=== PATIENT | female | born 1995 | race American Indian/Alaskan Native ===

== ENCOUNTER 2017-04-07 21:19 | Outpatient (CLI) | payer MEDICAID ==
[2017-04-07 21:30] VITALS: BP 132/68
[2017-04-07] MEDS ORDERED: LACTATED RINGERS 1,000 ML IV SCH (22:00)
[2017-04-07] MEDS ORDERED: VISTARIL PO ONE (22:09)
== END 2017-04-07 23:15 | disposition left against medical advice (07) ==
LOC: TRG 21:19
PROVIDERS: ATTEND Obstetrics & Gynecology
DX: O47.1 False labor at or after 37 completed weeks of gestation (principal); Z3A.39 39 weeks gestation of pregnancy
CPT/HCPCS: 59025; Q0177

== ENCOUNTER 2017-04-08 14:52 | Inpatient (IN) | payer MEDICAID ==
[2017-04-08] MEDS ORDERED: STADOL IV PRN (16:22)
[2017-04-08 16:44] LABS: Hematocrit 37.5 % (30.3-42.9); Hemoglobin 12.8 gm/dl (10.1-14.3); Mean Corpuscular HGB Conc 34 % (30-34); Mean Corpuscular Hemoglobin 31 pg (28-32); Mean Corpuscular Volume 91 fl (79-97); Platelet Count 294 K/mm3 (140-440); Red Blood Count 4.11 M/mm3 (3.65-5.03); Red Cell Distribution Width 14.9 % (13.2-15.2)
[2017-04-08] MEDS ORDERED: POLYCILLIN/NS 2 GM/100 ML 2 GM/100 ML BAG IV ONE (17:00)
[2017-04-08] MEDS ORDERED: PITOCin/NS 20 UNIT/1000ML DRIP 20 UNITS/1,000 ML BAG IV SCH ×2 (17:00→23:45)
[2017-04-08] MEDS: LACTATED RINGERS 1,000 ML IV SCH ×4 (17:25→23:11)
[2017-04-08] MEDS ORDERED: ePHEDrine SULFATE IV PRN (18:38)
[2017-04-08] MEDS ORDERED: NARCAN 2 MG/2 ML IV PRN (18:38)
[2017-04-08] MEDS ORDERED: fentaNYL-BUPIV 2 MCG/ML-0.125% 200 MCG/100 ML BAG EPIDURAL SCH (19:00)
[2017-04-08] MEDS ORDERED: ePHEDrine SULFATE ONE (19:11)
[2017-04-08] MEDS ORDERED: XYLOCAINE 2% INFILTRATI ONE ×3 (19:17→23:36)
[2017-04-08] MEDS ORDERED: SUBLIMAZE ONE ×2 (19:20→22:41)
[2017-04-08] MEDS ORDERED: SUBLIMAZE IV ONE ×2 (19:50→22:37)
--- NOTE | 2017-04-08 19:56 | Anesthesia Consultation ---
Anesthesia Consult and Med Hx Date of service: 04/08/17 - Airway Anesthetic Teeth Evaluation: Good ROM Head & Neck: Adequate Mental/Hyoid Distance: Adequate Mallampati Class: Class III Intubation Access Assessment: Probably Good - Pulmonary Exam CTA: Yes - Cardiac Exam Cardiac Exam: RRR - Pre-Operative Health Status ASA Pre-Surgery Classification: ASA2 Proposed Anesthetic Plan: Epidural, Spinal - Pulmonary Hx Smoking: No Hx Asthma: No COPD: No Hx Pneumonia: No - Cardiovascular System Hx Hypertension: No - Central Nervous System Hx Seizures: No Hx Psychiatric Problems: No - Endocrine Hx Renal Disease: No Hx End Stage Renal Disease: No Hx Hypothyroidism: No Hx Hyperthyroidism: No - Hematic Hx Anemia: No Hx Sickle Cell Disease: No - Other Systems Hx Alcohol Use: No
[2017-04-08] MEDS: PITOCin/NS 30 UNIT/500ML 30 UNITS/500 ML BAG IV SCH ×2 (20:38→21:18)
[2017-04-08] MEDS ORDERED: POLYCILLIN/NS 1 GM/50 ML 1 GM/50 ML BAG IV SCH (21:00)
--- NOTE | 2017-04-08 22:55 | Progress Note ---
Subjective Date of service: 04/08/17 Principal diagnosis: IUP Interval history: Nurse notified me of labor pain of which is not responsive to a bolus on the pump. I reported to OB. Obtained a vial of fentanyl. Bolused 1ml through epidural catheter. Bolused 3 ml of bupivicaine/fentanyl solution. Both with negative aspiration using aseptic technique Objective - Constitutional Vitals: Vital Signs - 12hr 04/08/17 04/08/17 04/08/17 15:22 15:27 15:47 Temperature 99.0 F Pulse Rate 93 H 89 Respiratory 18 Rate Blood Pressure 129/85 118/70 Blood Pressure [Left] O2 Sat by Pulse Oximetry 04/08/17 04/08/17 04/08/17 17:01 17:08 18:09 Temperature 97.9 F Pulse Rate 100 H 102 H Respiratory 18 Rate Blood Pressure 138/87 129/62 Blood Pressure [Left] O2 Sat by Pulse Oximetry 04/08/17 04/08/17 04/08/17 18:35 18:39 18:40 Temperature Pulse Rate 101 H 100 H 103 H Respiratory Rate Blood Pressure 120/69 Blood Pressure [Left] O2 Sat by Pulse 98 98 Oximetry 04/08/17 04/08/17 04/08/17 18:42 18:50 18:55 Temperature Pulse Rate 98 H 89 Respiratory Rate Blood Pressure Blood Pressure [Left] O2 Sat by Pulse 80 L 99 98 Oximetry 04/08/17 04/08/17 04/08/17 18:59 19:00 19:01 Temperature Pulse Rate 88 98 H 85 Respiratory Rate Blood Pressure 129/67 125/65 Blood Pressure [Left] O2 Sat by Pulse 98 Oximetry 04/08/17 04/08/17 04/08/17 19:03 19:05 19:07 Temperature Pulse Rate 90 94 H 93 H Respiratory Rate Blood Pressure 131/71 128/72 129/68 Blood Pressure [Left] O2 Sat by Pulse 98 Oximetry 04/08/17 04/08/17 04/08/17 19:09 19:10 19:11 Temperature Pulse Rate 96 H 97 H 96 H Respiratory Rate Blood Pressure 128/73 132/73 Blood Pressure [Left] O2 Sat by Pulse 98 Oximetry 04/08/17 04/08/17 04/08/17 19:13 19:15 19:17 Temperature Pulse Rate 92 H 94 H 94 H Respiratory Rate Blood Pressure 128/72 123/66 124/69 Blood Pressure [Left] O2 Sat by Pulse 96 Oximetry 04/08/17 04/08/17 04/08/17 19:19 19:20 19:21 Temperature Pulse Rate 93 H 94 H 91 H Respiratory Rate Blood Pressure 125/68 120/67 Blood Pressure [Left] O2 Sat by Pulse 96 Oximetry 04/08/17 04/08/17 04/08/17 19:23 19:25 19:27 Temperature Pulse Rate 90 97 H 100 H Respiratory Rate Blood Pressure 122/66 119/69 113/68 Blood Pressure [Left] O2 Sat by Pulse 99 Oximetry 04/08/17 04/08/17 04/08/17 19:29 19:30 19:31 Temperature Pulse Rate 92 H 92 H 93 H Respiratory Rate Blood Pressure 112/73 118/73 Blood Pressure [Left] O2 Sat by Pulse 98 Oximetry 04/08/17 04/08/17 04/08/17 19:33 19:35 19:36 Temperature Pulse Rate 90 93 H 97 H Respiratory Rate Blood Pressure 120/76 124/73 Blood Pressure [Left] O2 Sat by Pulse 86 Oximetry 04/08/17 04/08/17 04/08/17 19:37 19:39 19:41 Temperature Pulse Rate 86 96 H 91 H Respiratory Rate Blood Pressure 142/76 133/73 129/70 Blood Pressure [Left] O2 Sat by Pulse 97 Oximetry 04/08/17 04/08/17 04/08/17 19:42 19:43 19:45 Temperature Pulse Rate 95 H 88 94 H Respiratory Rate Blood Pressure 134/74 131/73 Blood Pressure [Left] O2 Sat by Pulse 97 Oximetry 04/08/17 04/08/17 04/08/17 19:47 19:49 19:51 Temperature Pulse Rate 87 93 H 85 Respiratory Rate Blood Pressure 138/74 131/74 137/75 Blood Pressure [Left] O2 Sat by Pulse 98 Oximetry 04/08/17 04/08/17 04/08/17 19:52 19:53 19:57 Temperature Pulse Rate 91 H 85 96 H Respiratory Rate Blood Pressure 112/60 Blood Pressure [Left] O2 Sat by Pulse 98 98 Oximetry 04/08/17 04/08/17 04/08/17 19:59 20:00 20:02 Temperature 98.3 F Pulse Rate 88 92 H Respiratory 18 Rate Blood Pressure 119/67 Blood Pressure 129/67 [Left] O2 Sat by Pulse 98 98 Oximetry 04/08/17 04/08/17 04/08/17 20:04 20:07 20:09 Temperature Pulse Rate 92 H 87 87 Respiratory Rate Blood Pressure 117/63 122/60 Blood Pressure [Left] O2 Sat by Pulse 97 Oximetry 04/08/17 04/08/17 04/08/17 20:12 20:14 20:17 Temperature Pulse Rate 83 83 88 Respiratory Rate Blood Pressure 118/64 Blood Pressure [Left] O2 Sat by Pulse 98 97 Oximetry 04/08/17 04/08/17 04/08/17 20:19 20:22 20:27 Temperature Pulse Rate 90 91 H 94 H Respiratory Rate Blood Pressure 136/63 Blood Pressure [Left] O2 Sat by Pulse 98 98 Oximetry 04/08/17 04/08/17 04/08/17 20:32 20:37 20:42 Temperature Pulse Rate 92 H 83 84 Respiratory Rate Blood Pressure 139/67 Blood Pressure [Left] O2 Sat by Pulse 97 97 99 Oximetry 04/08/17 04/08/17 04/08/17 20:47 20:50 20:52 Temperature Pulse Rate 96 H 91 H 96 H Respiratory Rate Blood Pressure Blood Pressure [Left] O2 Sat by Pulse 98 94 98 Oximetry 04/08/17 04/08/17 04/08/17 20:57 21:02 21:07 Temperature Pulse Rate 90 99 H 93 H Respiratory Rate Blood Pressure Blood Pressure [Left] O2 Sat by Pulse 98 98 98 Oximetry 04/08/17 04/08/17 04/08/17 21:12 21:17 21:22 Temperature Pulse Rate 94 H 89 88 Respiratory Rate Blood Pressure 123/66 Blood Pressure [Left] O2 Sat by Pulse 98 97 97 Oximetry 04/08/17 04/08/17 04/08/17 21:27 21:32 21:37 Temperature Pulse Rate 93 H 102 H 95 H Respiratory Rate Blood Pressure 127/60 Blood Pressure [Left] O2 Sat by Pulse 98 96 97 Oximetry 04/08/17 04/08/17 04/08/17 21:41 21:42 21:47 Temperature Pulse Rate 100 H 97 H 98 H Respiratory Rate Blood Pressure 125/70 Blood Pressure [Left] O2 Sat by Pulse 97 98 Oximetry 04/08/17 04/08/17 04/08/17 21:52 21:55 21:57 Temperature Pulse Rate 103 H 96 H 99 H Respiratory Rate Blood Pressure 140/64 134/66 Blood Pressure [Left] O2 Sat by Pulse 97 97 Oximetry 04/08/17 04/08/17 04/08/17 22:02 22:07 22:11 Temperature Pulse Rate 99 H 104 H 98 H Respiratory Rate Blood Pressure 123/70 Blood Pressure [Left] O2 Sat by Pulse 97 97 Oximetry 04/08/17 04/08/17 04/08/17 22:12 22:17 22:22 Temperature Pulse Rate 94 H 95 H 97 H Respiratory Rate Blood Pressure Blood Pressure [Left] O2 Sat by Pulse 98 97 97 Oximetry 04/08/17 04/08/17 04/08/17 22:27 22:32 22:37 Temperature Pulse Rate 93 H 89 98 H Respiratory Rate Blood Pressure 122/75 Blood Pressure [Left] O2 Sat by Pulse 96 97 97 Oximetry 04/08/17 04/08/17 04/08/17 22:42 22:47 22:52 Temperature Pulse Rate 89 82 90 Respiratory Rate Blood Pressure 117/61 Blood Pressure [Left] O2 Sat by Pulse 98 100 99 Oximetry - Labs CBC & Chem 7: 04/08/17 15:50 Labs: Abnormal lab results 04/08/17 Range/Units 15:50 WBC 18.2 H (4.5-11.0) K/mm3
[2017-04-08] MEDS ORDERED: MINERAL OIL PO PRN (23:36)
--- NOTE | 2017-04-08 23:43 | History and Physical Report ---
History of Present Illness Date of examination: 04/08/17 Date of admission: 04/08/17 15:46 Chief complaint: Intense Labor Pains History of present illness: Early entry to care, course complicated by excessive maternal weight gain and Vitamin D Insufficiency. Past History Past Medical History: no pertinent history Past Surgical History: no surgical history Family/Genetic History: diabetes (MGM, MGF), hypertension (Mother) Social history: no significant social history, single - Obstetrical History Expected Date of Delivery: 04/12/17 Actual Gestation: 39 Week(s) 3 Day(s) : 2 Medications and Allergies Allergies Allergy/AdvReac Type Severity Reaction Status Date / Time No Known Allergies Allergy Verified 04/07/17 22:05 Home Medications Medication Instructions Recorded Confirmed Last Taken Type Cholecalciferol (Vitamin D3) 1 tab PO DAILY 04/08/17 04/08/17 04/07/17 19:00 History [Vitamin D3] 1 Pnv,Calcium 72/Iron/Folic Acid 1 tab PO DAILY 04/08/17 04/08/17 04/07/17 19:00 History [Pnv Plus Multivit Tab] 1 Active Meds: Active Medications Butorphanol Tartrate (Stadol) 2 mg IV Q2H PRN PRN Reason: Labor Pain Last Admin: 04/08/17 18:17 Dose: 2 mg Ephedrine Sulfate (Ephedrine Sulfate) 10 mg IV Q2M PRN PRN Reason: Hypotension Lactated Ringer's (Lactated Ringers) 1,000 mls @ 125 mls/hr IV DIRECT GENTRY Last Admin: 04/08/17 23:11 Dose: 125 mls/hr Oxytocin/Sodium Chloride (Pitocin/Ns 20 Unit/1000ml Drip) 20 units in 1,000 mls @ 0 mls/hr IV DIRECT GENTRY PRN Reason: As Directed Ampicillin Sodium (Polycillin/Ns 1 Gm/50 Ml) 1 gm in 50 mls @ 100 mls/hr IV Q4H GENTRY PRN Reason: Protocol Last Admin: 04/08/17 21:17 Dose: 100 mls/hr Fentanyl/Bupivacaine/Sodium Chlor (Fentanyl-Bupiv 2 Mcg/Ml-0.125%) 200 mcg in 100 mls @ 12 mls/hr EPIDURAL TITR GENTRY PRN Reason: Protocol Last Admin: 04/08/17 19:51 Dose: 12 mls/hr Oxytocin/Sodium Chloride (Pitocin/Ns 30 Unit/500ml) 30 units in 500 mls @ 4 mls /hr IV TITR GENTRY; 4 MILLIUNITS/MIN PRN Reason: Protocol Last Admin: 04/08/17 21:18 Dose: 6 milliunits/min, 6 mls/hr Oxytocin/Sodium Chloride (Pitocin/Ns 20 Unit/1000ml Drip) 20 units in 1,000 mls @ 125 mls/hr IV DIRECT GENTRY Lidocaine (Xylocaine 2%) 20 ml INFILTRATI ONCE ONE Stop: 04/08/17 23:37 Mineral Oil (Mineral Oil) 30 ml PO QHS PRN PRN Reason: Constipation Naloxone HCl (Narcan 2 Mg/2 Ml) 0.2 mg IV Q5M PRN PRN Reason: Respiratory sedation Review of Systems All systems: negative - Vital Signs Vital signs: Vital Signs Temp Resp 99.0 F 18 04/08/17 15:22 04/08/17 15:22 Temp Pulse Resp BP Pulse Ox 98.3 F 94 H 18 122/66 99 04/08/17 20:00 04/08/17 23:41 04/08/17 19:59 04/08/17 23:41 04/08/17 23:37 - Physical Exam Breasts: Positive: normal Cardiovascular: Regular rate Lungs: Positive: Clear to auscultation, Normal air movement Abdomen: Positive: normal appearance, soft, normal bowel sounds Genitourinary (Female): Positive: normal external genitalia, normal perenium Uterus: Positive: enlarged Anus/Rectum: Positive: normal perianal skin Extremities: Positive: normal - Obstetrical FHR: category 2 FHR comments: FHR: 144, moderate varability, +accels, + occ varabile decels Uterine Contraction Monitor Mode: External Cervical Dilatation: 9.5 (Large amount of thin meconium stained fluids upon AROM @ 2331) Cervical Effacement Percentage: 100 station: 0 Uterine Contraction Pattern: Regular Uterine Tone Measurement Phase: Resting Uterine Contraction Intensity: Moderate Results Result Diagrams: 04/08/17 15:50 Abnormal lab results 04/08/17 Range/Units 15:50 WBC 18.2 H (4.5-11.0) K/mm3 All other labs normal. Assessment and Plan A: IUP @ 39 3/7 Weeks Active Labor Category II Tracing GBS Positive P: Admit to L&D per Routine Orders Pitocin Augmentation GBS Prophylaxis AROM
[2017-04-09] MEDS ORDERED: SUBLIMAZE IV ONE (00:33)
--- NOTE | 2017-04-09 00:57 | Progress Note ---
Subjective Date of service: 04/09/17 Principal diagnosis: IUP Interval history: Nurse notified me of labor pain of which is not responsive to the pump. I reported to OB. Obtained fentanyl. Bolused 1ml through epidural catheter- negative aspiration using aseptic technique Objective - Constitutional Vitals: Vital Signs - 12hr 04/08/17 04/08/17 04/08/17 15:22 15:27 15:47 Temperature 99.0 F Pulse Rate 93 H 89 Respiratory 18 Rate Blood Pressure 129/85 118/70 Blood Pressure [Left] O2 Sat by Pulse Oximetry 04/08/17 04/08/17 04/08/17 17:01 17:08 18:09 Temperature 97.9 F Pulse Rate 100 H 102 H Respiratory 18 Rate Blood Pressure 138/87 129/62 Blood Pressure [Left] O2 Sat by Pulse Oximetry 04/08/17 04/08/17 04/08/17 18:35 18:39 18:40 Temperature Pulse Rate 101 H 100 H 103 H Respiratory Rate Blood Pressure 120/69 Blood Pressure [Left] O2 Sat by Pulse 98 98 Oximetry 04/08/17 04/08/17 04/08/17 18:42 18:50 18:55 Temperature Pulse Rate 98 H 89 Respiratory Rate Blood Pressure Blood Pressure [Left] O2 Sat by Pulse 80 L 99 98 Oximetry 04/08/17 04/08/17 04/08/17 18:59 19:00 19:01 Temperature Pulse Rate 88 98 H 85 Respiratory Rate Blood Pressure 129/67 125/65 Blood Pressure [Left] O2 Sat by Pulse 98 Oximetry 04/08/17 04/08/17 04/08/17 19:03 19:05 19:07 Temperature Pulse Rate 90 94 H 93 H Respiratory Rate Blood Pressure 131/71 128/72 129/68 Blood Pressure [Left] O2 Sat by Pulse 98 Oximetry 04/08/17 04/08/17 04/08/17 19:09 19:10 19:11 Temperature Pulse Rate 96 H 97 H 96 H Respiratory Rate Blood Pressure 128/73 132/73 Blood Pressure [Left] O2 Sat by Pulse 98 Oximetry 04/08/17 04/08/17 04/08/17 19:13 19:15 19:17 Temperature Pulse Rate 92 H 94 H 94 H Respiratory Rate Blood Pressure 128/72 123/66 124/69 Blood Pressure [Left] O2 Sat by Pulse 96 Oximetry 04/08/17 04/08/17 04/08/17 19:19 19:20 19:21 Temperature Pulse Rate 93 H 94 H 91 H Respiratory Rate Blood Pressure 125/68 120/67 Blood Pressure [Left] O2 Sat by Pulse 96 Oximetry 04/08/17 04/08/17 04/08/17 19:23 19:25 19:27 Temperature Pulse Rate 90 97 H 100 H Respiratory Rate Blood Pressure 122/66 119/69 113/68 Blood Pressure [Left] O2 Sat by Pulse 99 Oximetry 04/08/17 04/08/17 04/08/17 19:29 19:30 19:31 Temperature Pulse Rate 92 H 92 H 93 H Respiratory Rate Blood Pressure 112/73 118/73 Blood Pressure [Left] O2 Sat by Pulse 98 Oximetry 04/08/17 04/08/17 04/08/17 19:33 19:35 19:36 Temperature Pulse Rate 90 93 H 97 H Respiratory Rate Blood Pressure 120/76 124/73 Blood Pressure [Left] O2 Sat by Pulse 86 Oximetry 04/08/17 04/08/17 04/08/17 19:37 19:39 19:41 Temperature Pulse Rate 86 96 H 91 H Respiratory Rate Blood Pressure 142/76 133/73 129/70 Blood Pressure [Left] O2 Sat by Pulse 97 Oximetry 04/08/17 04/08/17 04/08/17 19:42 19:43 19:45 Temperature Pulse Rate 95 H 88 94 H Respiratory Rate Blood Pressure 134/74 131/73 Blood Pressure [Left] O2 Sat by Pulse 97 Oximetry 04/08/17 04/08/17 04/08/17 19:47 19:49 19:51 Temperature Pulse Rate 87 93 H 85 Respiratory Rate Blood Pressure 138/74 131/74 137/75 Blood Pressure [Left] O2 Sat by Pulse 98 Oximetry 04/08/17 04/08/17 04/08/17 19:52 19:53 19:57 Temperature Pulse Rate 91 H 85 96 H Respiratory Rate Blood Pressure 112/60 Blood Pressure [Left] O2 Sat by Pulse 98 98 Oximetry 04/08/17 04/08/17 04/08/17 19:59 20:00 20:02 Temperature 98.3 F Pulse Rate 88 92 H Respiratory 18 Rate Blood Pressure 119/67 Blood Pressure 129/67 [Left] O2 Sat by Pulse 98 98 Oximetry 04/08/17 04/08/17 04/08/17 20:04 20:07 20:09 Temperature Pulse Rate 92 H 87 87 Respiratory Rate Blood Pressure 117/63 122/60 Blood Pressure [Left] O2 Sat by Pulse 97 Oximetry 04/08/17 04/08/17 04/08/17 20:12 20:14 20:17 Temperature Pulse Rate 83 83 88 Respiratory Rate Blood Pressure 118/64 Blood Pressure [Left] O2 Sat by Pulse 98 97 Oximetry 04/08/17 04/08/17 04/08/17 20:19 20:22 20:27 Temperature Pulse Rate 90 91 H 94 H Respiratory Rate Blood Pressure 136/63 Blood Pressure [Left] O2 Sat by Pulse 98 98 Oximetry 04/08/17 04/08/17 04/08/17 20:32 20:37 20:42 Temperature Pulse Rate 92 H 83 84 Respiratory Rate Blood Pressure 139/67 Blood Pressure [Left] O2 Sat by Pulse 97 97 99 Oximetry 04/08/17 04/08/17 04/08/17 20:47 20:50 20:52 Temperature Pulse Rate 96 H 91 H 96 H Respiratory Rate Blood Pressure Blood Pressure [Left] O2 Sat by Pulse 98 94 98 Oximetry 04/08/17 04/08/17 04/08/17 20:57 21:02 21:07 Temperature Pulse Rate 90 99 H 93 H Respiratory Rate Blood Pressure Blood Pressure [Left] O2 Sat by Pulse 98 98 98 Oximetry 04/08/17 04/08/17 04/08/17 21:12 21:17 21:22 Temperature Pulse Rate 94 H 89 88 Respiratory Rate Blood Pressure 123/66 Blood Pressure [Left] O2 Sat by Pulse 98 97 97 Oximetry 04/08/17 04/08/17 04/08/17 21:27 21:32 21:37 Temperature Pulse Rate 93 H 102 H 95 H Respiratory Rate Blood Pressure 127/60 Blood Pressure [Left] O2 Sat by Pulse 98 96 97 Oximetry 04/08/17 04/08/17 04/08/17 21:41 21:42 21:47 Temperature Pulse Rate 100 H 97 H 98 H Respiratory Rate Blood Pressure 125/70 Blood Pressure [Left] O2 Sat by Pulse 97 98 Oximetry 04/08/17 04/08/17 04/08/17 21:52 21:55 21:57 Temperature Pulse Rate 103 H 96 H 99 H Respiratory Rate Blood Pressure 140/64 134/66 Blood Pressure [Left] O2 Sat by Pulse 97 97 Oximetry 04/08/17 04/08/17 04/08/17 22:02 22:07 22:11 Temperature Pulse Rate 99 H 104 H 98 H Respiratory Rate Blood Pressure 123/70 Blood Pressure [Left] O2 Sat by Pulse 97 97 Oximetry 04/08/17 04/08/17 04/08/17 22:12 22:17 22:22 Temperature Pulse Rate 94 H 95 H 97 H Respiratory Rate Blood Pressure Blood Pressure [Left] O2 Sat by Pulse 98 97 97 Oximetry 04/08/17 04/08/17 04/08/17 22:27 22:32 22:37 Temperature Pulse Rate 93 H 89 98 H Respiratory Rate Blood Pressure 122/75 Blood Pressure [Left] O2 Sat by Pulse 96 97 97 Oximetry 04/08/17 04/08/17 04/08/17 22:42 22:47 22:52 Temperature Pulse Rate 89 82 90 Respiratory Rate Blood Pressure 117/61 Blood Pressure [Left] O2 Sat by Pulse 98 100 99 Oximetry 04/08/17 04/08/17 04/08/17 22:57 23:02 23:07 Temperature Pulse Rate 90 91 H 89 Respiratory Rate Blood Pressure 130/73 Blood Pressure [Left] O2 Sat by Pulse 99 99 99 Oximetry 04/08/17 04/08/17 04/08/17 23:12 23:17 23:22 Temperature Pulse Rate 96 H 89 89 Respiratory Rate Blood Pressure Blood Pressure [Left] O2 Sat by Pulse 98 99 99 Oximetry 04/08/17 04/08/17 04/08/17 23:27 23:32 23:37 Temperature Pulse Rate 99 H 88 85 Respiratory Rate Blood Pressure Blood Pressure [Left] O2 Sat by Pulse 100 99 99 Oximetry 04/08/17 04/08/17 04/08/17 23:41 23:42 23:47 Temperature Pulse Rate 94 H 95 H 98 H Respiratory Rate Blood Pressure 122/66 Blood Pressure [Left] O2 Sat by Pulse 99 99 Oximetry 04/08/17 04/09/17 04/09/17 23:52 00:12 00:15 Temperature 98.6 F Pulse Rate 94 H 82 Respiratory Rate Blood Pressure 133/83 Blood Pressure [Left] O2 Sat by Pulse 99 Oximetry 04/09/17 00:42 Temperature Pulse Rate 82 Respiratory Rate Blood Pressure 124/86 Blood Pressure [Left] O2 Sat by Pulse Oximetry - Labs CBC & Chem 7: 04/08/17 15:50 Labs: Abnormal lab results 04/08/17 Range/Units 15:50 WBC 18.2 H (4.5-11.0) K/mm3
[2017-04-09] MEDS ORDERED: BICITRA PO ONE (02:17)
[2017-04-09] MEDS ORDERED: PEPCID IV ONE (02:18)
[2017-04-09] MEDS ORDERED: XYLOCAINE MPF 2% ONE ×4 (02:29)
[2017-04-09] MEDS ORDERED: REGLAN ONE (02:32)
--- NOTE | 2017-04-09 02:45 | Progress Note ---
Assessment and Plan A: IUP @ 39 3/7 Weeks Category II Tracing Arrest of Dilation/Decent Poor Pain Control GBS Positive P: Consult Dr. Rob Edwards agrees with plan of care; prepare for delivery by Subjective - Subjective Date of service: 04/09/17 Principal diagnosis: IUP Interval history: Early entry to care, course complicated by excessive maternal weight gain and Vitamin D Insufficiency. Patient reports: other (Poor pain control; screaming in intolerable back pain after 4 re-doses of epidural) Objective - Vital Signs Vital Signs: Vital Signs - 12hr 04/08/17 04/08/17 04/08/17 15:22 15:27 15:47 Temperature 99.0 F Pulse Rate 93 H 89 Respiratory 18 Rate Blood Pressure 129/85 118/70 Blood Pressure [Left] O2 Sat by Pulse Oximetry 04/08/17 04/08/17 04/08/17 17:01 17:08 18:09 Temperature 97.9 F Pulse Rate 100 H 102 H Respiratory 18 Rate Blood Pressure 138/87 129/62 Blood Pressure [Left] O2 Sat by Pulse Oximetry 04/08/17 04/08/17 04/08/17 18:35 18:39 18:40 Temperature Pulse Rate 101 H 100 H 103 H Respiratory Rate Blood Pressure 120/69 Blood Pressure [Left] O2 Sat by Pulse 98 98 Oximetry 04/08/17 04/08/17 04/08/17 18:42 18:50 18:55 Temperature Pulse Rate 98 H 89 Respiratory Rate Blood Pressure Blood Pressure [Left] O2 Sat by Pulse 80 L 99 98 Oximetry 04/08/17 04/08/17 04/08/17 18:59 19:00 19:01 Temperature Pulse Rate 88 98 H 85 Respiratory Rate Blood Pressure 129/67 125/65 Blood Pressure [Left] O2 Sat by Pulse 98 Oximetry 04/08/17 04/08/17 04/08/17 19:03 19:05 19:07 Temperature Pulse Rate 90 94 H 93 H Respiratory Rate Blood Pressure 131/71 128/72 129/68 Blood Pressure [Left] O2 Sat by Pulse 98 Oximetry 04/08/17 04/08/17 04/08/17 19:09 19:10 19:11 Temperature Pulse Rate 96 H 97 H 96 H Respiratory Rate Blood Pressure 128/73 132/73 Blood Pressure [Left] O2 Sat by Pulse 98 Oximetry 04/08/17 04/08/17 04/08/17 19:13 19:15 19:17 Temperature Pulse Rate 92 H 94 H 94 H Respiratory Rate Blood Pressure 128/72 123/66 124/69 Blood Pressure [Left] O2 Sat by Pulse 96 Oximetry 04/08/17 04/08/17 04/08/17 19:19 19:20 19:21 Temperature Pulse Rate 93 H 94 H 91 H Respiratory Rate Blood Pressure 125/68 120/67 Blood Pressure [Left] O2 Sat by Pulse 96 Oximetry 04/08/17 04/08/17 04/08/17 19:23 19:25 19:27 Temperature Pulse Rate 90 97 H 100 H Respiratory Rate Blood Pressure 122/66 119/69 113/68 Blood Pressure [Left] O2 Sat by Pulse 99 Oximetry 04/08/17 04/08/17 04/08/17 19:29 19:30 19:31 Temperature Pulse Rate 92 H 92 H 93 H Respiratory Rate Blood Pressure 112/73 118/73 Blood Pressure [Left] O2 Sat by Pulse 98 Oximetry 04/08/17 04/08/17 04/08/17 19:33 19:35 19:36 Temperature Pulse Rate 90 93 H 97 H Respiratory Rate Blood Pressure 120/76 124/73 Blood Pressure [Left] O2 Sat by Pulse 86 Oximetry 04/08/17 04/08/17 04/08/17 19:37 19:39 19:41 Temperature Pulse Rate 86 96 H 91 H Respiratory Rate Blood Pressure 142/76 133/73 129/70 Blood Pressure [Left] O2 Sat by Pulse 97 Oximetry 04/08/17 04/08/17 04/08/17 19:42 19:43 19:45 Temperature Pulse Rate 95 H 88 94 H Respiratory Rate Blood Pressure 134/74 131/73 Blood Pressure [Left] O2 Sat by Pulse 97 Oximetry 04/08/17 04/08/17 04/08/17 19:47 19:49 19:51 Temperature Pulse Rate 87 93 H 85 Respiratory Rate Blood Pressure 138/74 131/74 137/75 Blood Pressure [Left] O2 Sat by Pulse 98 Oximetry 04/08/17 04/08/17 04/08/17 19:52 19:53 19:57 Temperature Pulse Rate 91 H 85 96 H Respiratory Rate Blood Pressure 112/60 Blood Pressure [Left] O2 Sat by Pulse 98 98 Oximetry 04/08/17 04/08/17 04/08/17 19:59 20:00 20:02 Temperature 98.3 F Pulse Rate 88 92 H Respiratory 18 Rate Blood Pressure 119/67 Blood Pressure 129/67 [Left] O2 Sat by Pulse 98 98 Oximetry 04/08/17 04/08/17 04/08/17 20:04 20:07 20:09 Temperature Pulse Rate 92 H 87 87 Respiratory Rate Blood Pressure 117/63 122/60 Blood Pressure [Left] O2 Sat by Pulse 97 Oximetry 04/08/17 04/08/17 04/08/17 20:12 20:14 20:17 Temperature Pulse Rate 83 83 88 Respiratory Rate Blood Pressure 118/64 Blood Pressure [Left] O2 Sat by Pulse 98 97 Oximetry 04/08/17 04/08/17 04/08/17 20:19 20:22 20:27 Temperature Pulse Rate 90 91 H 94 H Respiratory Rate Blood Pressure 136/63 Blood Pressure [Left] O2 Sat by Pulse 98 98 Oximetry 04/08/17 04/08/17 04/08/17 20:32 20:37 20:42 Temperature Pulse Rate 92 H 83 84 Respiratory Rate Blood Pressure 139/67 Blood Pressure [Left] O2 Sat by Pulse 97 97 99 Oximetry 04/08/17 04/08/17 04/08/17 20:47 20:50 20:52 Temperature Pulse Rate 96 H 91 H 96 H Respiratory Rate Blood Pressure Blood Pressure [Left] O2 Sat by Pulse 98 94 98 Oximetry 04/08/17 04/08/17 04/08/17 20:57 21:02 21:07 Temperature Pulse Rate 90 99 H 93 H Respiratory Rate Blood Pressure Blood Pressure [Left] O2 Sat by Pulse 98 98 98 Oximetry 04/08/17 04/08/17 04/08/17 21:12 21:17 21:22 Temperature Pulse Rate 94 H 89 88 Respiratory Rate Blood Pressure 123/66 Blood Pressure [Left] O2 Sat by Pulse 98 97 97 Oximetry 04/08/17 04/08/17 04/08/17 21:27 21:32 21:37 Temperature Pulse Rate 93 H 102 H 95 H Respiratory Rate Blood Pressure 127/60 Blood Pressure [Left] O2 Sat by Pulse 98 96 97 Oximetry 04/08/17 04/08/17 04/08/17 21:41 21:42 21:47 Temperature Pulse Rate 100 H 97 H 98 H Respiratory Rate Blood Pressure 125/70 Blood Pressure [Left] O2 Sat by Pulse 97 98 Oximetry 04/08/17 04/08/17 04/08/17 21:52 21:55 21:57 Temperature Pulse Rate 103 H 96 H 99 H Respiratory Rate Blood Pressure 140/64 134/66 Blood Pressure [Left] O2 Sat by Pulse 97 97 Oximetry 04/08/17 04/08/17 04/08/17 22:02 22:07 22:11 Temperature Pulse Rate 99 H 104 H 98 H Respiratory Rate Blood Pressure 123/70 Blood Pressure [Left] O2 Sat by Pulse 97 97 Oximetry 04/08/17 04/08/17 04/08/17 22:12 22:17 22:22 Temperature Pulse Rate 94 H 95 H 97 H Respiratory Rate Blood Pressure Blood Pressure [Left] O2 Sat by Pulse 98 97 97 Oximetry 04/08/17 04/08/17 04/08/17 22:27 22:32 22:37 Temperature Pulse Rate 93 H 89 98 H Respiratory Rate Blood Pressure 122/75 Blood Pressure [Left] O2 Sat by Pulse 96 97 97 Oximetry 04/08/17 04/08/17 04/08/17 22:42 22:47 22:52 Temperature Pulse Rate 89 82 90 Respiratory Rate Blood Pressure 117/61 Blood Pressure [Left] O2 Sat by Pulse 98 100 99 Oximetry 04/08/17 04/08/17 04/08/17 22:57 23:02 23:07 Temperature Pulse Rate 90 91 H 89 Respiratory Rate Blood Pressure 130/73 Blood Pressure [Left] O2 Sat by Pulse 99 99 99 Oximetry 04/08/17 04/08/17 04/08/17 23:12 23:17 23:22 Temperature Pulse Rate 96 H 89 89 Respiratory Rate Blood Pressure Blood Pressure [Left] O2 Sat by Pulse 98 99 99 Oximetry 04/08/17 04/08/17 04/08/17 23:27 23:32 23:37 Temperature Pulse Rate 99 H 88 85 Respiratory Rate Blood Pressure Blood Pressure [Left] O2 Sat by Pulse 100 99 99 Oximetry 04/08/17 04/08/17 04/08/17 23:41 23:42 23:47 Temperature Pulse Rate 94 H 95 H 98 H Respiratory Rate Blood Pressure 122/66 Blood Pressure [Left] O2 Sat by Pulse 99 99 Oximetry 04/08/17 04/09/17 04/09/17 23:52 00:12 00:15 Temperature 98.6 F Pulse Rate 94 H 82 Respiratory Rate Blood Pressure 133/83 Blood Pressure [Left] O2 Sat by Pulse 99 Oximetry 04/09/17 04/09/17 04/09/17 00:42 01:11 01:42 Temperature Pulse Rate 82 88 81 Respiratory Rate Blood Pressure 124/86 136/86 135/73 Blood Pressure [Left] O2 Sat by Pulse Oximetry 04/09/17 02:12 Temperature Pulse Rate 92 H Respiratory Rate Blood Pressure 135/102 Blood Pressure [Left] O2 Sat by Pulse Oximetry - Exam Breasts: normal Cardiovascular: Regular rate Lungs: Clear to auscultation, Normal air movement Abdomen: Present: normal appearance, soft, normal bowel sounds Uterus: Present: normal, firm, fundal height below umbilicus FHR: category 2 FHR comments: FHR: 172, moderate varability, +accels, +isolated mild varabile decels Uterine Contraction Monitor Mode: External Cervical Dilatation: 9 Cervical Effacement Percentage: 100 station: 0 Uterine Contraction Pattern: Regular Uterine Tone Measurement Phase: Resting Uterine Contraction Intensity: Strong/Firm - Labs Labs: Abnormal Labs 04/08/17 15:50 WBC 18.2 H Laboratory Results - last 24 hr 04/08/17 04/08/17 15:50 15:50 WBC 18.2 H RBC 4.11 Hgb 12.8 Hct 37.5 MCV 91 MCH 31 MCHC 34 RDW 14.9 Plt Count 294 Blood Type A POSITIVE Antibody Screen Negative
[2017-04-09] MEDS ORDERED: ANCEF/STERILE WATER 2 GM/20 ML IV NR (03:00)
[2017-04-09] MEDS ORDERED: REGLAN IV NR ×2 (03:00→06:00)
[2017-04-09] MEDS ORDERED: MORPHINE ONE (03:01)
[2017-04-09] MEDS ORDERED: WATER FOR IRRIG STERILE IR ONE (03:06)
[2017-04-09] MEDS ORDERED: NACL 0.9% IR ONE (03:06)
[2017-04-09] MEDS ORDERED: NEO SYNEPHRINE/NS Syringe(OR USE) IV ONE (03:23)
--- NOTE | 2017-04-09 04:16 | Operative Report ---
Operative Report Operative Report: Date of procedure: 04/09/2017 Pre-operative diagnosis: 1. Intrauterine at 39-4/7 weeks 2. Failure to progress 3. Arrest of descent 4. Positive GBS Post-operative diagnosis: Same Procedure name(s): Primary low transverse section Surgeon: Dereje Edwards MD Shot Fireman: None Anesthesia: Spinal anesthesia by Dr. Cole EBL: 600 mL Findings: A 2452 g female 7 at 1 minute 8 at 5 minutes. Tight nuchal cord 1. Clear amniotic fluid. Normal uterus. Normal tubes and ovaries bilaterally. Procedure: After the patient was prepped and draped in usual sterile fashion, and after satisfactory level of epidural anesthesia was obtained, the skin knife was used to make a transverse skin incision. The incision was excised down to layer of the fascia, which was nicked in the midline and extended laterally using the Bovie cautery. The rectus muscles were dissected off the rectus fascia both superiorly and inferiorly. The rectus bellies in the midline, and the peritoneum was entered under direct visualization. The peritoneal incision was extended superiorly and inferiorly. A bladder flap was created and the bladder blade was then placed. The uterus was scored in a curvilinear linear fashion, entered in the midline revealing clear amniotic fluid. The 's head was delivered onto the surgical field, tight nuchal cord 1 was reduced and the oropharynx and nasopharynx were bulb suctioned. The rest of the 's body was delivered, cord was doubly clamped and cut and the was handed to the waiting respiratory team. The placenta was manually removed from the uterus, and the uterus removed from its normal anatomical position. After gentle uterine lavage, the incision was inspected and found to be without extensions. It was then closed in 2 layers using 0 Vicryl suture in a running interlocking fashion, the second layer imbricating the first. After good hemostasis was achieved, copious amounts or irrigation was performed, and the gutters were suctioned free of blood and blood clots. Tisseel sealant was sprayed across the uterine incision. The uterus was then returned to its normal anatomical position, and after excellent hemostasis assured, the peritoneum was re-approximated using 3-0 Vicryl suture in a running interlocking fashion, and then the rectus muscles were re-approximated using 3-0 Vicryl suture in a [id number] configuration. The fascia was then re-approximated using 0 Vicryl suture in running interlocking fashion. The subcutaneous layer was made hemostatic using Bovie cautery, the Tisseel sealant was sprayed across the fascial incision and the skin edges re- approximated using 4-0 Vicryl suture in a sub-cuticular fashion. Patient tolerated the procedure well was transported to recovery in stable condition.
[2017-04-09] MEDS ORDERED: TUCKS PAD TP PRN (04:18)
[2017-04-09] MEDS ORDERED: TYLENOL PO PRN (04:18)
[2017-04-09] MEDS ORDERED: ZOFRAN IV PRN ×2 (04:18→04:30)
[2017-04-09] MEDS ORDERED: MILK OF MAGNESIA PO PRN (04:18)
[2017-04-09] MEDS ORDERED: PHENERGAN PR PRN ×2 (04:18→04:30)
[2017-04-09] MEDS ORDERED: MYLICON PO PRN (04:18)
[2017-04-09] MEDS ORDERED: NARCAN 0.4 MG/1 ML IV PRN ×2 (04:18→04:30)
[2017-04-09] MEDS ORDERED: LANSINOH TP PRN (04:18)
[2017-04-09] MEDS ORDERED: SENOKOT PO PRN (04:18)
[2017-04-09] MEDS ORDERED: PHENERGAN PO PRN (04:30)
--- NOTE | 2017-04-09 04:30 | Anesthesia Day of Surgery ---
Anesthesia Day of Surgery - Day of Surgery Patient Examined: Yes Patient H&P Reviewed: Yes Patient is NPO: Yes Beta Blockers: Yes Cardiac Clearance: Yes Pulmonary Clearance: Yes Major's Test: N/A
--- NOTE | 2017-04-09 04:30 | Post Anesthesia Evaluation ---
- Post Anesthesia Evaluation Patient Participated: Yes Airway Patent: Yes Stable Respiratory Function: Yes Nausea/Vomiting: No Temp > 96.8F: Yes Pain Manageable: Yes Adequeate Hydration: Yes Anesthesia Complications: No Block Receding Appropriately: Yes Patient on Ventilator: No
[2017-04-09] MEDS ORDERED: PITOCin/NS 20 UNIT/1000ML DRIP 20 UNITS/1,000 ML BAG IV SCH (05:00)
[2017-04-09] MEDS ORDERED: ANCEF/NS 1 GM/50 ML 1 GM/50 ML BAG IV SCH (05:00)
[2017-04-09] MEDS ORDERED: SODIUM CHLORIDE FLUSH SYRINGE 10 ML IV PRN (05:00)
[2017-04-09] MEDS ORDERED: SODIUM CHLORIDE FLUSH SYRINGE 10 ML IV NR (05:00)
[2017-04-09] MEDS ORDERED: fentaNYL-BUPIV 2 MCG/ML-0.125% 200 MCG/100 ML BAG EPIDURAL SCH (05:00)
[2017-04-09] MEDS: TORADOL IV PRN ×2 (09:39→16:29)
[2017-04-09] MEDS: PRENATAL VITAMIN PO SCH (09:40)
[2017-04-09] MEDS: FEOSOL PO SCH (09:40)
[2017-04-09] MEDS: D5LR 1,000 ML IV SCH ×2 (09:41→17:40)
[2017-04-09] MEDS: ceFAZolin 1 GM in NACL 0.9% 20 ML IV SCH ×2 (12:15→19:50)
[2017-04-09 16:42] LABS: Hematocrit 31.6 % (30.3-42.9); Hemoglobin 10.5 gm/dl (10.1-14.3)
[2017-04-09] MEDS: NORCO 5/325 PO PRN (20:07)
[2017-04-10] MEDS: NORCO 5/325 PO PRN ×2 (01:29→05:45)
[2017-04-10] MEDS ORDERED: M-M-R II VACCINE SUB-Q ONE (04:19)
[2017-04-10] MEDS ORDERED: BOOSTRIX IM ONE (06:00)
--- NOTE | 2017-04-10 08:47 | Progress Note ---
Assessment and Plan - Patient Problems (1) Status post primary low transverse section Onset Date: ~04/09/17 Current Visit: Yes Status: Acute Plan to address problem: Continue Routine Postop orders Discharge to home 04/11/2017 Followup @ [facility] in 2 weeks for Incision Check and in 6 weeks for PP exam/Mirena insertion Subjective - Subjective Date of service: 04/10/17 Principal diagnosis: Primary Low Transverse Patient reports: appetite normal, voiding normally, pain well controlled, flatus , bowel movement, ambulating normally [place]: doing well, bottle feeding Objective - Vital Signs Latest vital signs: Vital Signs Temp Pulse Resp BP 04/10/17 00:00 98.5 F 91 H 20 119/70 04/09/17 20:00 98.7 F 91 H 18 118/63 04/09/17 16:29 18 04/09/17 13:00 98.8 F 90 18 119/73 04/09/17 09:39 18 Intake and Output 04/09/17 04/10/17 04/10/17 23:59 07:59 15:59 Intake Total 1357.917 180 Output Total 200 600 Balance 1157.917 -420 Intake: IV 997.917 D5lr 1,000 ml @ 125 mls/ 997.917 hr IV DIRECT GENTRY Rx#: [id number] Intake, Free Water 360 180 Output: Urine 200 600 Void 200 600 Other: Total, Output Amount 200 450 # Voids Void 3 - Exam Cardiovascular: Present: Regular rate, Normal S1, Normal S2, No murmurs Lungs: Present: Clear to auscultation, Normal air movement Abdomen: Present: normal appearance, soft Vulva: both: normal Uterus: Present: normal, firm, fundal height below umbilicus Extremities: Present: normal Deep Tendon Reflex Grade: Normal +2 Incision: Present: normal, dry, intact
[2017-04-10] MEDS: MOTRIN PO PRN ×2 (08:55→17:57)
--- NOTE | 2017-04-10 08:55 | Discharge Summary ---
Providers - Providers Date of Admission: 04/08/17 15:46 Date of discharge: 04/11/17 Attending physician: KEVYN LEZAMA MD Primary care physician: KEVYN LEZAMA MD Hospitalization Reason for admission: active labor, IUP at term Delivery: Procedure: primary low transverse Episiotomy: none Laceration: none Incision: normal, dry, intact Other procedures: none complications: none Discharge diagnosis: IUP at term delivered [place] baby: female Hospital course: Uncomplicated Condition at discharge: Stable Disposition: DC-[id number] TO HOME OR SELFCARE - Discharge Diagnoses (1) Status post primary low transverse section Status: Acute Plan - Discharge Medications Prescriptions: Ferrous Sulfate [Feosol 325 MG tab] 325 mg PO BID #60 tablet HYDROcodone/APAP 5-325 [[place] 5/325] 1 each PO Q6HR PRN #30 tablet PRN Reason: Pain Ibuprofen [Motrin] 800 mg PO Q8HR PRN #30 tablet PRN Reason: Moder Pain Unrelieved By [place] Vit Calc,Iron,Folic [ Vitamins] 1 each PO DAILY #30 tablet - Provider Discharge Summary Activity: routine, no sex for 6 weeks, no heavy lifting 4 weeks, no strenuous exercise Diet: routine Instructions: routine Additional instructions: [] Smoking cessation referral if applicable(refer to patient education folder for contact #) [] Refer to [facility] Booklet Call your doctor immediately for: * Fever > 100.5 * Heavy vaginal bleeding ( >1 pad per hour) * Severe persistent headache * Shortness of breath * Reddened, hot, painful area to leg or breast * Drainage or odor from incision. * Keep incision clean and dry at all times and follow doctor's instructions regarding bathing/showering - Follow up plan Follow up: KEVYN LEZAMA MD [Primary Care Provider] - 14 Days (Follow up @ [facility] in 2 weeks for incision check and in 6 weeks for PP exam/Mirena IUS insertion)
[2017-04-10] MEDS: FEOSOL PO SCH (10:34)
[2017-04-10] MEDS: PRENATAL VITAMIN PO SCH (10:34)
--- NOTE | 2017-04-10 10:48 | Progress Note ---
Subjective Date of service: 04/10/17 Principal diagnosis: Primary Low Transverse Interval history: 1st POD after Patient is in the bed, comfortable. Pain is well controlled with pain meds. Ambulated well. No residual neurological deficit. No anesthesia complications Objective - Constitutional Vitals: Vital Signs - 12hr 04/10/17 04/10/17 00:00 09:18 Temperature 98.5 F 98.4 F Pulse Rate 91 H 84 Respiratory 20 18 Rate Blood Pressure 119/70 114/61 [Left] - Labs CBC & Chem 7: 04/09/17 16:22
[2017-04-10] MEDS: PERCOCET 5/325 PO PRN ×2 (14:19→21:12)
[2017-04-11] MEDS: MOTRIN PO PRN (01:25)
[2017-04-11] MEDS: NORCO 5/325 PO PRN (01:26)
[2017-04-11] MEDS: PERCOCET 5/325 PO PRN ×2 (08:09→12:17)
[2017-04-11] MEDS: FEOSOL PO SCH (10:47)
[2017-04-11] MEDS: PRENATAL VITAMIN PO SCH (10:47)
[2017-04-11 15:10] VITALS: BP 128/73
== END 2017-04-11 13:15 | disposition home or self-care (01) | DRG 766 ==
LOC: TRG 14:52 → LD 15:46 → OB 04-09 05:53
PROVIDERS: ADMIT Obstetrics & Gynecology; ATTEND Obstetrics & Gynecology
PROC: 10D00Z1 Extraction of Products of Conception, Low, Open Approach (ICD-10-PCS; principal; 2017-04-09)
PROC: 3E0234Z Introduction of Serum, Toxoid and Vaccine into Muscle, Percutaneous Approach (ICD-10-PCS; 2017-04-10)
DX: O62.1 Secondary uterine inertia (principal); O99.824 Streptococcus B carrier state complicating childbirth; O26.03 Excessive weight gain in pregnancy, third trimester; O75.89 Other specified complications of labor and delivery; E55.9 Vitamin D deficiency, unspecified; Z3A.39 39 weeks gestation of pregnancy; Z37.0 Single live birth; Z23 Encounter for immunization; Z83.3 Family history of diabetes mellitus; Z82.49 Family history of ischemic heart disease and other diseases of the circulatory system; O69.1XX0 Labor and delivery complicated by cord around neck, with compression, not applicable or unspecified
CPT/HCPCS: 36415; 85014; 85018; 85027; 86592; 86850; 86900; 86901; C9250; J0290; J0595; J0690; J1885; J2270; J2370; J2590; J2765; J3010; J7120; J7121; Q0169

== ENCOUNTER 2018-06-25 07:30 | Inpatient (IN) | payer MEDICAID ==
[2018-06-25] MEDS ORDERED: REGLAN IV ONE (11:18)
[2018-06-25] MEDS ORDERED: BICITRA PO ONE (11:18)
[2018-06-25] MEDS ORDERED: PEPCID IV ONE (11:18)
[2018-06-25] MEDS ORDERED: PITOCin/NS 20 UNIT/1000ML DRIP 20 UNITS/1,000 ML BAG IV SCH ×2 (12:00→17:00)
[2018-06-25] MEDS: LACTATED RINGERS 1,000 ML IV SCH ×3 (12:05→13:15)
[2018-06-25 12:07] LABS: Basophils % (Auto) 0.3 % (0.0-1.8); Eosinophils % (Auto) 0.2 % (0.0-4.3); Hematocrit 34.2 % (30.3-42.9); Hemoglobin 11.4 gm/dl (10.1-14.3); Lymphocytes # (Auto) 1.2 K/mm3 (1.2-5.4); Mean Corpuscular HGB Conc 33 % (30-34); Mean Corpuscular Volume 88 fl (79-97); Monocytes # (Auto) 0.5 K/mm3 (0.0-0.8); Monocytes % (Auto) 4.8 % (0.0-7.3); Platelet Count 271 K/mm3 (140-440); Red Cell Distribution Width 15.3 % (13.2-15.2)
--- NOTE | 2018-06-25 13:07 | History and Physical Report ---
History of Present Illness Date of admission: 06/25/18 11:06 Chief complaint: scheduled repeat section History of present illness: 23yo 39 2/7 weeks presents for scheduled repeat section. She reports good movement, no loss of fluid and no vaginal bleeding. Her has been complicated by late to care because she was unaware she was . She has a short interval since her last delivery and was unaware she was . She was treated with iron for anemia. She is a patient of [facility] since 15 weeks of gestation. Past History Past Surgical History: section - Obstetrical History : 3 Number of Living Children: 1 Medications and Allergies Allergies Allergy/AdvReac Type Severity Reaction Status Date / Time No Known Allergies Allergy Verified 04/07/17 22:05 Home Medications Medication Instructions Recorded Confirmed Last Taken Type Cholecalciferol (Vitamin D3) 1 tab PO DAILY 04/08/17 04/08/17 04/07/17 19:00 History [Vitamin D3] 1 Pnv,Calcium 72/Iron/Folic Acid 1 tab PO DAILY 04/08/17 04/08/17 04/07/17 19:00 History [Pnv Plus Multivit Tab] 1 Ferrous Sulfate [Feosol 325 MG tab] 325 mg PO BID #60 tablet 04/09/17 Unknown Rx HYDROcodone/APAP 5-325 [[place] 1 each PO Q6HR PRN #30 tablet 04/09/17 Unknown Rx 5/325] Ibuprofen [Motrin] 800 mg PO Q8HR PRN #30 tablet 04/09/17 Unknown Rx Vit Calc,Iron,Folic 1 each PO DAILY #30 tablet 04/09/17 Unknown Rx [ Vitamins] Active Meds: Active Medications Lactated Ringer's (Lactated Ringers) 1,000 mls @ 2,250 mls/hr IV PREOP GENTRY Stop: 06/26/18 12:27 Last Admin: 06/25/18 12:19 Dose: 2,250 mls/hr Documented by: Oxytocin/Sodium Chloride (Pitocin/Ns 20 Unit/1000ml Drip) 20 units in 1,000 mls @ 0 mls/hr IV TITR GENTRY - Vital Signs Vital signs: Vital Signs Pulse BP 85 120/63 06/25/18 11:30 06/25/18 11:30 Temp Pulse Resp BP Pulse Ox 98.2 F 85 20 120/63 06/25/18 11:31 06/25/18 11:31 06/25/18 11:31 06/25/18 11:31 - Obstetrical FHR: auscultation normal Results Result Diagrams: 06/25/18 11:50 Abnormal lab results 06/25/18 Range/Units 11:50 RDW 15.3 H (13.2-15.2) % Lymph % (Auto) 12.0 L (13.4-35.0) % Seg Neutrophils % 82.7 H (40.0-70.0) % Seg Neutrophils # 8.6 H (1.8-7.7) K/mm3 All other labs normal. Assessment and Plan - Patient Problems (1) 39 weeks gestation of Current Visit: Yes Status: Acute Plan to address problem: IVF Routine labs Ancef 2g SCDs for DVT prophylaxis Risks including but not limited to bleeding, infections, injury to mother/ and/or surroundings organs, possible need for blood transfusion and/or hysterectomy were discussed and informed consent signed. Proceed to OR. (2) Previous delivery affecting Current Visit: Yes Status: Acute
[2018-06-25] MEDS ORDERED: ZOFRAN IV PRN ×2 (13:49→17:07)
[2018-06-25] MEDS ORDERED: PHENERGAN PR PRN ×2 (13:49→17:07)
[2018-06-25] MEDS ORDERED: NARCAN 0.4 MG/1 ML IV PRN ×2 (13:49→17:07)
[2018-06-25] MEDS ORDERED: PHENERGAN PO PRN ×2 (13:49→17:07)
--- NOTE | 2018-06-25 13:50 | Anesthesia Consultation ---
Anesthesia Consult and Med Hx - Airway Anesthetic Teeth Evaluation: Good ROM Head & Neck: Adequate Mental/Hyoid Distance: Adequate Mallampati Class: Class I Intubation Access Assessment: Good - Pulmonary Exam CTA: Yes - Pre-Operative Health Status ASA Pre-Surgery Classification: ASA2 Proposed Anesthetic Plan: Epidural - Pulmonary Hx Smoking: No Hx Asthma: No COPD: No Hx Pneumonia: No - Cardiovascular System Hx Hypertension: No - Central Nervous System Hx Seizures: No Hx Psychiatric Problems: No - Endocrine Hx Renal Disease: No Hx End Stage Renal Disease: No Hx Hypothyroidism: No Hx Hyperthyroidism: No - Hematic Hx Anemia: No Hx Sickle Cell Disease: No - Other Systems Hx Alcohol Use: No
--- NOTE | 2018-06-25 13:51 | Anesthesia Day of Surgery ---
Anesthesia Day of Surgery - Day of Surgery Patient Examined: Yes Patient H&P Reviewed: Yes Patient is NPO: Yes Beta Blockers: No Cardiac Clearance: No Pulmonary Clearance: No Major's Test: N/A
[2018-06-25] MEDS ORDERED: ANCEF/STERILE WATER 2 GM/20 ML 2 GM/20 ML SYRINGE IV NR (14:00)
[2018-06-25] MEDS ORDERED: SODIUM CHLORIDE FLUSH SYRINGE 10 ML IV NR ×2 (14:00→18:00)
[2018-06-25] MEDS ORDERED: SUBLIMAZE ONE (15:21)
[2018-06-25] MEDS ORDERED: ZOFRAN ONE (15:21)
[2018-06-25] MEDS ORDERED: WATER FOR IRRIG STERILE IR ONE (15:40)
[2018-06-25] MEDS ORDERED: NACL 0.9% IR ONE (15:40)
[2018-06-25] MEDS ORDERED: TORADOL ONE (16:00)
[2018-06-25] MEDS ORDERED: LACTATED RINGERS 1,000 ML ONE (16:00)
[2018-06-25] MEDS ORDERED: MILK OF MAGNESIA PO PRN (16:57)
[2018-06-25] MEDS ORDERED: TUCKS PAD TP PRN (16:57)
[2018-06-25] MEDS ORDERED: TYLENOL PO PRN (16:57)
[2018-06-25] MEDS ORDERED: MYLICON PO PRN (16:57)
[2018-06-25] MEDS ORDERED: LANSINOH TP PRN (16:57)
[2018-06-25] MEDS ORDERED: DILAUDID IV PRN ×2 (17:07→22:13)
--- NOTE | 2018-06-25 17:09 | Operative Report ---
Operative Report Operative Report: DATE OF OPERATION: 06/25/18 PREOP Diagnosis 1. 39 2/7 weeks gestation 2. Previous section Postop Diagnosis 1. 39 2/7 weeks gestation 2. Previous section Procedure: Repeat low-transverse section Findings 1. Viable female in the vertex presentation, weighing 6lb 14 oz, 3127g APGARS 8 at 1 min, 9 at 5 min 2. Normal uterus, bilateral ovaries and tubes Surgeon 1. Sandy Shafer MD Anesthesia: 1. Epidural I/O: EBL: 700ml UOP: 200ml IVF 2300ml LR Specimens removed: 1. Placenta Complications: none Disposition: Patient taken to recovery room in stable condition INDICATIONS: The patient is a 23yo at 39 2/7weeks the presented for scheduled repeat section. The patient was consented and the risks including but not limited to bleeding, infections, injury to surrounding organs, potential injury to mother/ were discussed. All questions were answered and informed consent signed. PROCEDURE: The patient was taken to OR 1 in stable condition. Adequate anesthesia was achieved with epidural anesthesia. A sandhu catheter was placed. She wore SCDs for DVT prophylaxis. And received Ancef for infection prophylaxis. The patient was prepped and draped in the usual fashion and an additional time out was done. A Pfannestiel incision was made over the previous uterine scar. The fascia was incised and the incision extended laterally. The superior and inferior aspect of the rectus muscle was dissected off of the fascia. Entry into the peritoneum was achieved. The incision was extended caudally. An Leighton retractor was placed. A low-transverse incision made made in the uterus and extended laterally. membranes were ruptured and noted to be clear. The head was brought to the hysterotomy and mouth bulb suctioned. The body was delivered. The cord was clamped x 2, cut and handed off to awaiting ice cream scooper staff. The placenta was delivered intact and 20 units of IV Pitocin were added to LR fluids. The uterus was cleaned of all clots. The uterus was repaired with 0-Vicryl in a running, locked stitch and an imbricating layer of the same suture was used. The rectus muscle was reapproximated with 2- 0 Vicryl. The fascia was closed with 0 Vicryl. The Subcutaneous layer was reapproximated with 3-0 Vicryl and the Skin closed with 4-0 Vicryl. The patient tolerated the procedure well. All counts were correct x 3. Urine was noted to be clear at close of case. I was present and scrubbed for the en tire procedure. The patient was taken to the recovery room in stable condition.
[2018-06-25] MEDS: DILAUDID IV PRN ×2 (17:40→18:11)
[2018-06-25] MEDS: TORADOL IV PRN (20:45)
[2018-06-25] MEDS ORDERED: LACTATED RINGERS 1,000 ML IV SCH (21:30)
[2018-06-26] MEDS: TORADOL IV PRN (02:39)
[2018-06-26] MEDS: PERCOCET 5/325 PO PRN ×4 (05:39→19:28)
[2018-06-26 07:47] LABS: Hematocrit 28.8 % (30.3-42.9); Hemoglobin 9.4 gm/dl (10.1-14.3)
[2018-06-26] MEDS: IBUPROFEN PO PRN ×2 (08:45→14:39)
--- NOTE | 2018-06-26 08:55 | Progress Note ---
Assessment and Plan A: 23 yo, @ POD1 S/P repeat C/S Incision dressing dry and intact Anemia Late to care Short interval between pregnancies P: Continue routine PP orders Infed 100 mg IM x 1 dose Continue po iron supplemenatation D/C home in 24-48 hrs Subjective - Subjective Date of service: 06/26/18 (08) Principal diagnosis: Repeat C/S Interval history: See admission and OB operative report Patient reports: appetite normal, voiding normally, pain well controlled (with medications), flatus, bowel movement, ambulating normally [place]: doing well, other (and breast feeding), bottle feeding Objective - Vital Signs Latest vital signs: Vital Signs Temp Pulse Resp BP BP Pulse Ox 06/26/18 07:23 98.2 F 77 18 104/46 06/26/18 04:26 98.4 F 81 16 88/52 98 06/26/18 00:42 98.6 F 84 16 101/53 97 06/25/18 18:03 78 25 H 117/65 100 06/25/18 17:45 76 18 11/60 100 06/25/18 17:30 78 21 116/65 100 06/25/18 17:15 80 18 103/66 100 06/25/18 17:10 77 21 110/69 100 06/25/18 17:07 97.8 F 79 14 92/72 100 06/25/18 11:31 98.2 F 85 20 120/63 06/25/18 11:30 85 120/63 Intake and Output 06/25/18 06/26/18 06/26/18 23:59 07:59 15:59 Intake Total 940 2280 Output Total 700 1200 Balance 240 1080 Intake: IV 700 1000 Lactated Ringers 1,000 ml 1000 @ 125 mls/hr IV DIRECT GENTRY Rx#:[id number] Oral 240 680 Intake, Free Water 600 Output: Urine 700 1200 Indwelling Catheter 1200 Uretheral ([place]) 300 Other: Total, Intake Amount 240 480 Total, Output Amount 1200 Estimated Blood Loss 700 - Exam Breasts: Present: normal Cardiovascular: Present: Regular rate, Normal S1, Normal S2 Lungs: Present: Clear to auscultation, Normal air movement Abdomen: Present: soft, tenderness, normal bowel sounds Uterus: Present: firm, fundal height below umbilicus (U-1) Extremities: Present: normal Deep Tendon Reflex Grade: Normal +2 Incision: Present: dressed (No shadow bleeding/drainage noted) - Labs Labs: Abnormal lab results 06/25/18 06/26/18 Range/Units 11:50 06:57 Hgb 9.4 L (10.1-14.3) gm/dl Hct 28.8 L (30.3-42.9) % RDW 15.3 H (13.2-15.2) % Lymph % (Auto) 12.0 L (13.4-35.0) % Seg Neutrophils % 82.7 H (40.0-70.0) % Seg Neutrophils # 8.6 H (1.8-7.7) K/mm3
[2018-06-26] MEDS ORDERED: INFED IM NR ×2 (10:00→15:00)
[2018-06-26] MEDS: FEOSOL PO SCH (12:21)
[2018-06-27] MEDS: PERCOCET 5/325 PO PRN ×2 (01:24→08:51)
[2018-06-27] MEDS: IBUPROFEN PO PRN (08:52)
[2018-06-27] MEDS: FEOSOL PO SCH (10:06)
--- NOTE | 2018-06-27 10:21 | Progress Note ---
Assessment and Plan A: POD #2 Asymptomatic Anemia P: Follow Routine PostOp Orders Continue FeSO4 as ordered Depo Provera 150mg IM x 1 dose prior to discharge D/C home today per patient request RTO in One Week Subjective - Subjective Date of service: 06/27/18 Principal diagnosis: Repeat C/S Patient reports: appetite normal, voiding normally, pain well controlled, flatus, ambulating normally : doing well Objective - Vital Signs Latest vital signs: Vital Signs Temp Pulse Resp BP BP Pulse Ox 06/27/18 01:24 20 06/27/18 01:14 98.4 F 88 20 115/60 96 06/26/18 19:28 18 06/26/18 16:11 98.1 F 83 18 113/56 06/26/18 14:39 20 06/26/18 13:10 20 06/26/18 12:22 98.2 F 83 18 106/56 06/26/18 12:21 20 Intake and Output 06/26/18 06/27/18 06/27/18 22:59 06:59 14:59 Intake Total 480 240 Balance 480 240 Intake: Oral 480 240 Other: Total, Intake Amount 480 240 # Voids Void 1 - Exam Breasts: Present: normal Cardiovascular: Present: Regular rate Lungs: Present: Clear to auscultation, Normal air movement Abdomen: Present: normal appearance, soft, normal bowel sounds Uterus: Present: normal, firm, fundal height below umbilicus Extremities: Present: normal Incision: Present: normal, dry, intact
--- NOTE | 2018-06-27 10:22 | Discharge Summary ---
Providers - Providers Date of Admission: 06/25/18 11:06 Date of discharge: 06/27/18 Attending physician: EMILY WILKS Primary care physician: KEVYN LEZAMA MD Hospitalization Reason for admission: section Delivery: Procedure: repeat low transverse Episiotomy: none Laceration: none Incision: normal, dry, intact Other procedures: none complications: none Discharge diagnosis: IUP at term delivered baby: female Condition at discharge: Good Disposition: [id number] TO HOME OR SELFCARE Plan - Discharge Medications Prescriptions: Ibuprofen 800 mg PO Q6H PRN 10 Days #30 tablet MDD 3200mg PRN Reason: Pain, Moderate (4-6) oxyCODONE /ACETAMINOPHEN [Percocet 5/325] 1 tab PO Q4HR PRN 14 Days #30 tab PRN Reason: Pain , Severe (7-10) - Provider Discharge Summary Activity: routine, no sex for 6 weeks, no heavy lifting 4 weeks, no strenuous exercise Diet: routine Instructions: routine Additional instructions: [] Smoking cessation referral if applicable(refer to patient education folder for contact #) [] Refer to [facility] Booklet Call your doctor immediately for: * Fever > 100.5 * Heavy vaginal bleeding ( >1 pad per hour) * Severe persistent headache * Shortness of breath * Reddened, hot, painful area to leg or breast * Drainage or odor from incision. * Keep incision clean and dry at all times and follow doctor's instructions regarding bathing/showering - Follow up plan Follow up: KEVYN LEZAMA MD [Primary Care Provider] - 7 Days
[2018-06-27] MEDS ORDERED: DEPO-PROVERA (CONTRACEPTION) IM ONE (11:00)
[2018-06-27 13:27] VITALS: BP 113/53
== END 2018-06-27 13:20 | disposition home or self-care (01) | DRG 765 ==
LOC: APU 11:06 → OB 18:33
PROVIDERS: ADMIT Obstetrics & Gynecology; ATTEND Obstetrics & Gynecology
PROC: 10D00Z1 Extraction of Products of Conception, Low, Open Approach (ICD-10-PCS; principal; 2018-06-25)
DX: O34.211 Maternal care for low transverse scar from previous cesarean delivery (principal); D62 Acute posthemorrhagic anemia; Z3A.39 39 weeks gestation of pregnancy; Z37.0 Single live birth; O90.81 Anemia of the puerperium
CPT/HCPCS: 36415; 85014; 85018; 85025; 86850; 86900; 86901; G0378; J0690; J1050; J1170; J1750; J1885; J2405; J2590; J2765; J3010; J7120